=== PATIENT | female | born 1995 | race Two or more races ===

== ENCOUNTER 2019-02-28 12:24 | Emergency (ER) | payer OTHER ==
[~2019-02-28] VITALS: Ht 165.1 cm; Wt 68.2 kg
[2019-02-28] MEDS ORDERED: BACITRACIN OINT 30GM TOP ONE (13:15)
[2019-02-28 13:45] VITALS: BP 111/68
== END 2019-02-28 13:46 | disposition home or self-care (01) ==
LOC: M ED 12:24
DX: S61.211A Laceration without foreign body of left index finger without damage to nail, initial encounter (principal); W26.0XXA Contact with knife, initial encounter; Y92.018 Other place in single-family (private) house as the place of occurrence of the external cause; F17.210 Nicotine dependence, cigarettes, uncomplicated